=== PATIENT | female | born 1975 | race Caucasian/White ===

== ENCOUNTER 2019-09-17 12:38 | Emergency (ER) | payer SELFPAY ==
--- NOTE | 2019-09-17 14:38 | RAD REPORT ---
EXAM DESCRIPTION: RAD - Ribs Right - 09/17/2019 2:30 pm CLINICAL HISTORY: PAIN COMPARISON: No comparisons FINDINGS: Healing right posterolateral rib fracture is noted involving rib number 8. No acute rib fr acture seen. No aggressive rib lesion.
[2019-09-17] MEDS ORDERED: HYDROCODONE/APAP 10/325 TAB ONE (15:16)
[2019-09-17] MEDS ORDERED: KETOROLAC 30 MG/ML INJ ONE (15:16)
--- NOTE | 2019-09-17 15:24 | ER ---
Nurse's Notes 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 Transition of care: patient was not received from another setting of care. Onset of symptoms was September 10, 2019. Risk Assessment: Do you want to hurt yourself or someone else? Patient reports no desire to harm self or others. Initial Sepsis Screen: Does the patient meet any 2 criteria? No. Patient's initial sepsis screen is negative. Does the patient have a suspected source of infection? No. Patient's initial sepsis screen is negative. Care prior to arrival: Medication(s) given: Aleve at 0800 today. 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 - Social history:: Smoking status: Patient uses tobacco products, smokes one-half pack cigarettes per day. - Ebola Screening: : No symptoms or risks identified at this time. - Family history:: not pertinent. - Hospitalizations: : No recent hospitalization is reported. Screenin:35 Abuse screen: Denies threats or abuse. Nutritional screening: No deficits noted. tr5 Tuberculosis screening: No symptoms or risk factors identified. Fall Risk None identified. Assessment: 14:35 General: Appears uncomfortable, Behavior is calm, cooperative, appropriate for age. tr5 Pain: Complains of pain in right arm. Neuro: Level of Consciousness is awake, alert, obeys commands, Oriented to person, place, time, Wood Fuel Pelletizer are equal bilaterally. Cardiovascular: Heart tones present Capillary refill < 3 seconds Pulses are all present. Respiratory: Airway is patent Respiratory effort is even, unlabored, Respiratory pattern is regular, symmetrical. GI: No signs and/or symptoms were reported involving the gastrointestinal system. : No signs and/or symptoms were reported regarding the genitourinary system. EENT: No signs and/or symptoms were reported regarding the EENT system. Derm: No signs and/or symptoms reported regarding the dermatologic system. Musculoskeletal: Reports pain in right arm. Vital Signs: 12:49 BP 146 / 76; Pulse 80; Resp 16; Temp 98.3; Pulse Ox 99% ; Weight 58.97 kg; Height 5 ft. hb 7 in. (170.18 cm); Pain 8/10; 12:49 Body Mass Index 20.36 (58.97 kg, 170.18 cm) hb ED Course: 12:41 Patient arrived in ED. mr 12:48 Triage completed. hb 12:49 Arm band placed on. hb 13:19 Pop Troy MD is Attending Physician. rn 13:27 Bi Hollingsworth RN is Primary Nurse. tr5 14:35 Bed in low position. Call light in reach. Side rails up X 1. tr5 14:43 XRAY Ribs RIGHT In Process Unspecified. EDMS 15:47 EKG done, by pharmacy tech. reviewed by Pop Troy MD. 3 15:54 No provider procedures requiring assistance completed. Patient did not have IV access tr5 during this emergency room visit. Administered Medications: 15:25 Drug: TORadol 30 mg Route: IM; Site: right ventrogluteal; tr5 15:25 Drug: [place] 10 mg-325 mg 1 tabs {Note: RASS:0.} Route: PO; tr5 Outcome: 15:24 Discharge ordered by . rn 15:54 Discharged to home ambulatory. tr5 15:54 Condition: stable 15:54 Discharge instructions given to patient, family, friend, Instructed on discharge instructions, follow up and referral plans. medication usage, Demonstrated understanding of instructions, follow-up care, medications, Prescriptions given X 2. 15:55 Patient left the ED. tr5 Signatures: Dispatcher [employer] EDWY Alexa Grace Pop Farley MD MD rn Baxter, Heather, RN RN Qi Lambert 3 Bi Hollingsworth RN RN tr5
--- NOTE | 2019-09-17 15:25 | EDPHYS ---
Physician Documentation [facility] Name: Evelin Hammond Age: 44 yrs Sex: Female : 1975 Arrival Date: 09/17/2019 Time: 12:41 Bed 26 Private MD: ED Physician Pop Troy HPI: 09/17 15:00 This 44 yrs old Female presents to ER via Wheelchair with complaints of rn Shoulder Pain. 15:00 This 44 yrs old Female presents to ER via Wheelchair with complaints of rn Shoulder Pain/rib pain. 15:00 right ribs. rn 15:01 Onset: The symptoms/episode began/occurred 1 week(s) ago. Modifying factors: the rn symptoms are alleviated by remaining still, The symptoms are aggravated by movement. Severity of symptoms: At their worst the symptoms were moderate, in the emergency department the symptoms are unchanged. The patient has not experienced similar symptoms in the past. 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 No sob. No diaphoresis. No weakness/numbness. 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 - Social history:: Smoking status: Patient uses tobacco products, smokes one-half pack cigarettes per day. - Ebola Screening: : No symptoms or risks identified at this time. - Family history:: not pertinent. - Hospitalizations: : No recent hospitalization is reported. ROS: 15:16 Constitutional: Negative for fever, chills, and weight loss, Eyes: Negative for injury, rn pain, redness, and discharge, Neck: Negative for injury, pain, and swelling, Cardiovascular: Negative for palpitations, and edema, Respiratory: Negative for shortness of breath, cough, wheezing, and pleuritic chest pain, Abdomen/GI: Negative for abdominal pain, nausea, vomiting, diarrhea, and constipation, MS/Extremity: Negative for injury and deformity, Skin: Negative for injury, rash, and discoloration, Neuro: Negative for headache, weakness, numbness, tingling, and seizure. Exam: 15:16 Constitutional: This is a well developed, well nourished patient who is awake, alert, rn and in no acute distress. Head/Face: Normocephalic, atraumatic. Neck: Trachea midline, no thyromegaly or masses palpated, and no cervical lymphadenopathy. Supple, full range of motion without nuchal rigidity, or vertebral point tenderness. No Meningismus. Chest/axilla: Normal chest wall appearance and motion. + right lateral rib tenderness without ecchymosis/rash/crepitus. Cardiovascular: Regular rate and rhythm. No pulse deficits. Respiratory: No increased work of breathing, no retractions or nasal flaring. Abdomen/GI: soft, non-tender MS/ Extremity: Pulses equal, no cyanosis. Neurovascular intact. Full, normal range of motion. Equal circumference. Neuro: Awake and alert, GCS 15, oriented to person, place, time, and situation. Cranial nerves II-XII grossly intact. Motor strength 5/5 in all extremities. Sensory grossly intact. Vital Signs: 12:49 BP 146 / 76; Pulse 80; Resp 16; Temp 98.3; Pulse Ox 99% ; Weight 58.97 kg; Height 5 ft. hb 7 in. (170.18 cm); Pain 8/10; 12:49 Body Mass Index 20.36 (58.97 kg, 170.18 cm) hb MDM: 13:19 Patient medically screened. rn 15:22 Differential diagnosis: rib fracture, muscle strain. Data reviewed: vital signs, nurses rn notes, EKG, radiologic studies, plain films, and as a result, I will discharge patient. Counseling: I had a detailed discussion with the patient and/or guardian regarding: the historical points, exam findings, and any diagnostic results supporting the discharge/admit diagnosis, radiology results, the need for outpatient follow up, to return to the emergency department if symptoms worsen or persist or if there are any questions or concerns that arise at home. 15:23 Response to treatment: the patient's symptoms have mildly improved after treatment, and rn as a result, I will discharge patient. Special discussion: I discussed with the patient/guardian in detail that at this point there is no indication for admission to the hospital. It is understood, however, that if the symptoms persist or worsen the patient needs to return immediately for re-evaluation. ED course: Healing subacute posterolateral 8th rib fracture at or near location she is complaining of, will dc home with pain meds and muscle relaxer. . 09/17 13:36 Order name: ISRA Ribs RIGHT; Complete Time: 14:53 rn 09/17 15:19 Order name: EKG; Complete Time: 15:21 rn 09/17 15:19 Order name: EKG - Nurse/Tech; Complete Time: 15:25 rn Administered Medications: 15:25 Drug: TORadol 30 mg Route: IM; Site: right ventrogluteal; tr5 15:25 Drug: [place] 10 mg-325 mg 1 tabs {Note: RASS:0.} Route: PO; tr5 Disposition: 09/17/19 15:24 Discharged to Home. Impression: Fracture of one rib, right side. - Condition is Stable. - Discharge Instructions: Rib Fracture. - Prescriptions for Tylenol- Codeine #3 300-30 mg Oral Tablet - take 1 tablet by ORAL route every 6 hours As needed; 20 tablet. Cyclobenzaprine 10 mg Oral Tablet - take 1 tablet by ORAL route every 8 hours As needed; 20 tablet. - Medication Reconciliation Form, Thank You Letter, Antibiotic Education, Prescription Opioid Use form. - Follow up: Private Physician; When: As needed; Reason: Recheck today's complaints, Re-evaluation by your physician. - Problem is new. - Symptoms have improved. 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 No sob. . rn 15:55 15:24 09/17/2019 15:24 Discharged to Home. Impression: Fracture of one rib, right side. tr5 Condition is Stable. Forms are Medication Reconciliation Form, Thank You Letter, Antibiotic Education, Prescription Opioid Use. Follow up: Private Physician; When: As needed; Reason: Recheck today's complaints, Re-evaluation by your physician. Problem is new. Symptoms have improved. rn
[2019-09-17 16:21] VITALS: BP 146/76; TEMP 98.3; O2SAT 99
--- NOTE | 2019-09-18 07:25 | EKG ---
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
== END 2019-09-17 15:55 | disposition home or self-care (01) ==
LOC: ER 12:38
DX: S22.31XA Fracture of one rib, right side, initial encounter for closed fracture (principal); X50.1XXA Overexertion from prolonged static or awkward postures, initial encounter; Y93.89 Activity, other specified; Y92.89 Other specified places as the place of occurrence of the external cause; Y99.0 Civilian activity done for income or pay
CPT/HCPCS: 93005; 96372; 99284

== ENCOUNTER 2020-04-25 09:32 | Emergency (ER) | payer SELFPAY ==
[2020-04-25] MEDS ORDERED: HYDROCODONE/APAP 5/325 MG TAB ONE (11:19)
--- NOTE | 2020-04-25 11:31 | RAD REPORT ---
EXAM DESCRIPTION: RAD - Knee Left 3 View - 04/25/2020 10:21 am CLINICAL HISTORY: PAIN COMPARISON: No comparisons FINDINGS: Mild medial compartment space narrowing is seen. No fracture, dislocation or joint effusio n.
--- NOTE | 2020-04-25 11:43 | ER ---
Nurse's Notes [facility] Name: Evelin Hammond Age: 44 yrs Sex: Female : 1975 Arrival Date: 04/25/2020 Time: 09:35 Bed 23 Private MD: Diagnosis: Pain in left knee Presentation: 04/25 09:55 Chief complaint: Patient states: About a week and half ago, I slipped in the mud and ca1 hurt my L knee. Today, I went back to work this morning, and I can't stand on it. It just hurts. Coronavirus screen: Proceed with normal triage. Patient denies a cough. Patient denies shortness of breath or difficulty breathing. Patient denies measured and/or subjective temperature greater than 100.4F prior to today's visit. Patient denies travel on a cruise ship or to a country the [facility] currently lists as an affected area. Patient denies contact with known and/or suspected case of COVID-19. Ebola Screen: Patient negative for fever greater than or equal to 101.5 degrees Fahrenheit, and additional compatible Ebola Virus Disease symptoms Patient denies exposure to infectious person. Patient denies travel to an Ebola-affected area in the 21 days before illness onset. No symptoms or risks identified at this time. Initial Sepsis Screen: Does the patient meet any 2 criteria? No. Patient's initial sepsis screen is negative. Does the patient have a suspected source of infection? No. Patient's initial sepsis screen is negative. Risk Assessment: Do you want to hurt yourself or someone else? Patient reports no desire to harm self or others. Onset of symptoms was April 25, 2020. 09:55 Method Of Arrival: Wheelchair ca1 09:55 Acuity: JUAN MANUEL 4 ca1 Triage Assessment: 12:00 General: Appears in no apparent distress. Behavior is calm, cooperative. 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 - Social history:: Smoking status: Patient reports the use of cigarette tobacco products, smokes one-half pack cigarettes per day. Screenin:13 Abuse screen: Denies threats or abuse. Denies injuries from another. Nutritional iw screening: No deficits noted. Tuberculosis screening: No symptoms or risk factors identified. Fall Risk None identified. Assessment: 10:15 General: Appears in no apparent distress. comfortable, Behavior is calm, cooperative. iw Pain: Complains of pain in left knee. Neuro: Level of Consciousness is awake, alert, obeys commands, Oriented to person, place, time. Cardiovascular: Patient's skin is warm and dry. Respiratory: Respiratory effort is even, unlabored. GI: No signs and/or symptoms were reported involving the gastrointestinal system. Derm: Skin is intact, is healthy with good turgor. Musculoskeletal: Range of motion: limited in left knee. Vital Signs: 09:55 BP 105 / 65; Pulse 82; Resp 16 S; Temp 98.5(TE); Pulse Ox 99% on R/A; Weight 65.77 kg ca1 (R); Height 5 ft. 7 in. (170.18 cm) (R); Pain 8/10; 09:55 Body Mass Index 22.71 (65.77 kg, 170.18 cm) ca1 ED Course: 09:35 Patient arrived in ED. ag5 09:57 Triage completed. ca1 09:57 Arm band placed on right wrist. ca1 09:58 David Campbell NP is PHCP. pm1 09:58 Pop Troy MD is Attending Physician. pm1 10:15 Patient has correct armband on for positive identification. iw 10:21 Knee Left 3 View XRAY In Process Unspecified. EDMS 11:09 Yina Golden, RN is Primary Nurse. iw 12:13 No provider procedures requiring assistance completed. Patient did not have IV access iw during this emergency room visit. Administered Medications: 11:22 Drug: [place] 5 mg-325 mg 1 tabs Route: PO; iw Outcome: 11:42 Discharge ordered by . pm1 12:13 Discharged to home with crutches. iw 12:13 Condition: good 12:13 Discharge instructions given to patient, Instructed on discharge instructions, follow up and referral plans. Demonstrated understanding of instructions, follow-up care, medications, Prescriptions given X 1. 12:14 Patient left the ED. iw Signatures: Dispatcher [employer] EDMS Yina Golden, RN RN iw David Campbell, HYDRAULIC SPECIALIST HYDRAULIC SPECIALIST pm1 Amisha Costa, RN RN ca1 Nikos Mejia ag5
--- NOTE | 2020-04-25 11:43 | EDPHYS ---
Physician Documentation [facility] Name: Evelin Hammond Age: 44 yrs Sex: Female : 1975 Arrival Date: 04/25/2020 Time: 09:35 Bed 23 Private MD: ED Physician Pop Troy HPI: 04/25 10:53 This 44 yrs old Female presents to ER via Wheelchair with complaints of Knee pm1 Pain. 10:53 The patient presents with pain, that is acute. The complaints affect the left knee. pm1 Context: resulted from twisting of the extremity, the patient can partially bear weight, the patient is able to ambulate, Problem is a result from a previous injury: Yes. similar twisting injury many years ago that improved with rest. Onset: The symptoms/episode began/occurred 1 week(s) ago, and re-injured today. Modifying factors: The symptoms are alleviated by remaining still, the symptoms are aggravated by weight bearing, bending knee. Associated signs and symptoms: The patient has no apparent associated signs or symptoms, Pertinent negatives calf tenderness, fever, numbness, swelling, tingling. Treatment prior to arrival includes: rest and ibuprofen and tylenol. Severity of symptoms: in the emergency department the symptoms are actually worse. Patient slipped 1 week ago with falling that caused a twisting motion to her left knee. Patient reports some improvement with rest but then she slipped again today. She did not fall on the ground but it caused a twisting motion again. 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 - Social history:: Smoking status: Patient reports the use of cigarette tobacco products, smokes one-half pack cigarettes per day. ROS: 10:53 Constitutional: Negative for fever, chills, and weight loss, Neck: Negative for injury, pm1 pain, and swelling, Cardiovascular: Negative for chest pain, palpitations, and edema, Respiratory: Negative for shortness of breath, cough, wheezing, and pleuritic chest pain, Abdomen/GI: Negative for abdominal pain, nausea, vomiting, diarrhea, and constipation, Back: Negative for injury and pain. 10:53 Skin: Negative for injury, rash, and discoloration, Neuro: Negative for headache, weakness, numbness, tingling, and seizure. 10:53 MS/extremity: Positive for pain, of the left knee, Negative for deformity. Exam: 10:53 Constitutional: This is a well developed, well nourished patient who is awake, alert, pm1 and in no acute distress. Head/Face: Normocephalic, atraumatic. 10:53 Skin: Warm, dry with normal turgor. Normal color with no rashes, no lesions, and no evidence of cellulitis. 10:53 Cardiovascular: Exam negative for acute changes, Rate: normal, Rhythm: regular, Pulses: no pulse deficits are appreciated, Edema: is not appreciated. 10:53 Respiratory: Exam negative for acute changes, respiratory distress, shortness of breath. 10:53 Musculoskeletal/extremity: Extremities: grossly normal except: noted in the left knee: pain present with rotation of lower left leg medially and valgus stress. 10:53 Neuro: Exam negative for acute changes, Orientation: is normal, Motor: is normal, moves all fours, Sensation: is normal, no obvious gross deficits. Vital Signs: 09:55 BP 105 / 65; Pulse 82; Resp 16 S; Temp 98.5(TE); Pulse Ox 99% on R/A; Weight 65.77 kg ca1 (R); Height 5 ft. 7 in. (170.18 cm) (R); Pain 8/10; 09:55 Body Mass Index 22.71 (65.77 kg, 170.18 cm) ca1 MDM: 10:01 Patient medically screened. pm1 11:02 Data reviewed: vital signs. Data interpreted: Pulse oximetry: on room air is 99 %. pm1 Interpretation: normal. 11:41 Counseling: I had a detailed discussion with the patient and/or guardian regarding: the pm1 historical points, exam findings, and any diagnostic results supporting the discharge/admit diagnosis, radiology results, the need for outpatient follow up, to return to the emergency department if symptoms worsen or persist or if there are any questions or concerns that arise at home, Needs to see orthopedics for MRI and definitive treatment. 04/25 10:02 Order name: Knee Left 3 View XRAY; Complete Time: 11:40 pm1 04/25 10:53 Order name: Knee Immobilizer; Complete Time: 11:22 pm1 04/25 10:53 Order name: Crutches; Complete Time: 11:22 pm1 Administered Medications: 11:22 Drug: [place] 5 mg-325 mg 1 tabs Route: PO; Disposition: 13:01 Co-signature as Attending Physician, Pop Troy MD. rn Disposition: 04/25/20 11:42 Discharged to Home. Impression: Pain in left knee. - Condition is Stable. - Discharge Instructions: Crutch Use, Knee Immobilizer, Knee Pain. - Prescriptions for Tylenol- Codeine #3 300-30 mg Oral Tablet - take 2 tablets by ORAL route every 6 hours As needed; 20 tablet. - Medication Reconciliation Form, Thank You Letter, Antibiotic Education, Prescription Opioid Use form. - Follow up: Emergency Department; When: As needed; Reason: Worsening of condition. Follow up: Private Physician; When: 2 - 3 days; Reason: Recheck today's complaints, Continuance of care, Re-evaluation by your physician. - Problem is new. - Symptoms have improved. Signatures: Dispatcher [employer] Yina Royal RN RN iw Pop Troy MD MD rn Marinas, Patrick, MAO PART TIME pm1 Amisha Costa RN RN ca1 Corrections: (The following items were deleted from the chart) 11:41 11:41 Counseling: I had a detailed discussion with the patient and/or guardian pm1 regarding: the historical points, exam findings, and any diagnostic results supporting the discharge/admit diagnosis, radiology results, the need for outpatient follow up, to return to the emergency department if symptoms worsen or persist or if there are any questions or concerns that arise at home, pm1 12:14 11:42 04/25/2020 11:42 Discharged to Home. Impression: Pain in left knee. Condition is iw Stable. Forms are Medication Reconciliation Form, Thank You Letter, Antibiotic Education, Prescription Opioid Use. Follow up: Emergency Department; When: As needed; Reason: Worsening of condition. Follow up: Private Physician; When: 2 - 3 days; Reason: Recheck today's complaints, Continuance of care, Re-evaluation by your physician. Problem is new. Symptoms have improved. pm1
[2020-04-25 12:37] VITALS: BP 105/65; TEMP 98.5; O2SAT 99
== END 2020-04-25 12:14 | disposition home or self-care (01) ==
LOC: ER 09:32
DX: M25.562 Pain in left knee (principal); W01.0XXA Fall on same level from slipping, tripping and stumbling without subsequent striking against object, initial encounter; Y93.89 Activity, other specified; Y92.009 Unspecified place in unspecified non-institutional (private) residence as the place of occurrence of the external cause; F17.210 Nicotine dependence, cigarettes, uncomplicated
CPT/HCPCS: 99283

== ENCOUNTER 2021-04-07 05:27 | Emergency (ER) | payer SELFPAY ==
[2021-04-07] MEDS ORDERED: KETOROLAC 30 MG/ML INJ ONE (06:22)
[2021-04-07] MEDS ORDERED: CEPHALEXIN 250 MG CAP ONE (06:29)
[2021-04-07] MEDS ORDERED: SMZ./TMP. 800/160 MG TABLET ONE (06:30)
--- NOTE | 2021-04-07 06:40 | EDPHYS ---
Physician Documentation [facility] Name: Evelin Hammond Age: 45 yrs Sex: Female : 1975 Arrival Date: 04/07/2021 Time: 05:31 Bed 20 Private MD: ED Physician Yasir Jones HPI: 04/07 06:02 This 45 yrs old Female presents to ER via Ambulatory with complaints of mh7 Insect Bite. 06:02 The patient was bitten on the lrft forearm, by insect. Onset: The symptoms/episode mh7 began/occurred 3 day(s) ago. Animal information: Patient/Caregiver not able to describe the spider. Secondary to the bite the patient reports erythema, pain, a puncture wound, that is superficial, that is small. Associated signs and symptoms: Pertinent positives: erythema at site, pain at site, tenderness, Pertinent negatives: bony tenderness, fever, fluctuance, loss of consciousness, motor deficit, numbness distal to wound, suspected foreign body, swelling at site. Severity of symptoms: At their worst the symptoms were moderate, yesterday, in the emergency department the symptoms are unchanged. 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 - Social history:: Smoking status: Patient denies any tobacco usage or history of. ROS: 06:02 Constitutional: Negative for fever, chills, and weight loss, Eyes: Negative for injury, mh7 pain, redness, and discharge, ENT: Negative for injury, pain, and discharge, Neck: Negative for injury, pain, and swelling, Cardiovascular: Negative for chest pain, palpitations, and edema, Respiratory: Negative for shortness of breath, cough, wheezing, and pleuritic chest pain, Abdomen/GI: Negative for abdominal pain, nausea, vomiting, diarrhea, and constipation, Back: Negative for injury and pain, : Negative for injury, bleeding, discharge, and swelling, Neuro: Negative for headache, weakness, numbness, tingling, and seizure, Psych: Negative for depression, anxiety, suicide ideation, homicidal ideation, and hallucinations, Allergy/Immunology: Negative for hives, rash, and allergies, Endocrine: Negative for neck swelling, polydipsia, polyuria, polyphagia, and marked weight changes, Hematologic/Lymphatic: Negative for swollen nodes, abnormal bleeding, and unusual bruising. Exam: 06:02 Constitutional: This is a well developed, well nourished patient who is awake, alert, mh7 and in no acute distress. Head/Face: Normocephalic, atraumatic. Eyes: Pupils equal round and reactive to light, extra-ocular motions intact. Lids and lashes normal. Conjunctiva and sclera are non-icteric and not injected. Cornea within normal limits. Periorbital areas with no swelling, redness, or edema. Neck: Trachea midline, no thyromegaly or masses palpated, and no cervical lymphadenopathy. Supple, full range of motion without nuchal rigidity, or vertebral point tenderness. No Meningismus. Chest/axilla: Normal chest wall appearance and motion. Nontender with no deformity. No lesions are appreciated. Cardiovascular: Regular rate and rhythm with a normal S1 and S2. No gallops, murmurs, or rubs. Normal PMI, no JVD. No pulse deficits. Respiratory: Lungs have equal breath sounds bilaterally, clear to auscultation and percussion. No rales, rhonchi or wheezes noted. No increased work of breathing, no retractions or nasal flaring. Abdomen/GI: Soft, non-tender, with normal bowel sounds. No distension or tympany. No guarding or rebound. No evidence of tenderness throughout. Back: No spinal tenderness. No costovertebral tenderness. Full range of motion. 06:02 Neuro: Awake and alert, GCS 15, oriented to person, place, time, and situation. Cranial nerves II-XII grossly intact. Motor strength 5/5 in all extremities. Sensory grossly intact. Cerebellar exam normal. Normal gait. Psych: Awake, alert, with orientation to person, place and time. Behavior, mood, and affect are within normal limits. 06:02 Musculoskeletal/extremity: Extremities: noted in the left forearm: erythema, pain, tenderness, 3 cm area on dorsal left forearm, small puncture at center, no induration, no discharge, no swelling., ROM: intact in all extremities, Circulation is intact in all extremities. Sensation intact. Compartment Syndrome exam of affected extremity: is normal. no numbness, no tingling, no sensation deficit, no palor, no weak pulses, Joints: All joints appear normal with full range of motion. Weight bearing: able to fully bear weight, without difficulty, Tendon exam: specific tendon testing normal through active and passive range of motion 06:02 Skin: cellulitis, that is mild, confluent, on the left forearm, induration, is not appreciated, no rash present. Vital Signs: 05:38 BP 125 / 85; Pulse 93; Resp 16; Temp 97.8(O); Pulse Ox 99% on R/A; Weight 71.21 kg; ss Height 5 ft. 7 in. (170.18 cm); Pain 8/10; 05:38 Body Mass Index 24.59 (71.21 kg, 170.18 cm) ss MDM: 06:35 Differential diagnosis: cellulitis, Insect bite, contact dermatitis. Data reviewed: [facility] vital signs. Counseling: I had a detailed discussion with the patient and/or guardian regarding: the historical points, exam findings, and any diagnostic results supporting the discharge/admit diagnosis, the need for outpatient follow up, to return to the emergency department if symptoms worsen or persist or if there are any questions or concerns that arise at home. Response to treatment: the patient's symptoms have markedly improved after treatment. 06:39 Patient medically screened. [facility] Administered Medications: 06:05 Drug: TORadol (ketorolac) 60 mg Route: IM; Site: right ventrogluteal; [facility] 06:50 Follow up: Response: No adverse reaction [facility] 06:17 Drug: Bactrim (trimethoprim-sulfamethoxazole) (160 mg-800 mg (DS) 1 tablet Route: PO; [facility] 06:49 Follow up: Response: No adverse reaction [facility] 06:17 Drug: KeFLEX (cephalexin) 500 mg Route: PO; 8 06:49 Follow up: Response: No adverse reaction [facility] Disposition: 04/07/21 06:39 Discharged to Home. Impression: Cellulitis, Left Forearm, Possible Insect Bite. - Condition is Stable. - Discharge Instructions: Insect Bite, [id number], Cellulitis, Adult, Bvhy-[id number]. - Prescriptions for ketorolac 10 mg Oral tablet - take 1 tablet by ORAL route every 8 hours As needed not to exceed 40 mg in 24hrs; 12 tablet. Keflex 500 mg Oral Capsule - take 1 capsule by ORAL route every 6 hours for 10 days; 40 capsule. Bactrim DS 800- 160 mg Oral Tablet - take 1 tablet by ORAL route every 12 hours for 10 days; 20 tablet. - Medication Reconciliation Form, Thank You Letter, Antibiotic Education, Prescription Opioid Use form. - Follow up: Private Physician; When: 1 - 2 days; Reason: Worsening of condition, Recheck today's complaints, Continuance of care, Re-evaluation by your physician. Follow up: Emergency Department; When: 1 - 2 days; Reason: Worsening of condition, Recheck today's complaints. - Problem is new. - Symptoms have improved. Signatures: Angeles Morales RN RN ss Yasir Jones MD MD mh7 Hilario Ba RN RN jm8 Corrections: (The following items were deleted from the chart) 06:51 06:39 04/07/2021 06:39 Discharged to Home. Impression: Cellulitis, Left Forearm, jm8 Possible Insect Bite. Condition is Stable. Forms are Medication Reconciliation Form, Thank You Letter, Antibiotic Education, Prescription Opioid Use. Follow up: Private Physician; When: 1 - 2 days; Reason: Worsening of condition, Recheck today's complaints, Continuance of care, Re-evaluation by your physician. Follow up: Emergency Department; When: 1 - 2 days; Reason: Worsening of condition, Recheck today's complaints. Problem is new. Symptoms have improved. mh7
--- NOTE | 2021-04-07 06:40 | ER ---
Nurse's Notes [facility] Name: Evelin Hammond Age: 45 yrs Sex: Female : 1975 Arrival Date: 04/07/2021 Time: 05:31 Bed 20 Private MD: Diagnosis: Cellulitis, Left Forearm, Possible Insect Bite Presentation: 04/07 05:38 Chief complaint: Patient states: possible insect bite to L forearm that patient noticed ss yesterday. Coronavirus screen: Client denies travel out of the [place] in the last 14 days. Ebola Screen: Patient denies exposure to infectious person. Patient denies travel to an Ebola-affected area in the 21 days before illness onset. Initial Sepsis Screen: Does the patient meet any 2 criteria? No. Patient's initial sepsis screen is negative. Does the patient have a suspected source of infection? No. Patient's initial sepsis screen is negative. Risk Assessment: Do you want to hurt yourself or someone else? Patient reports no desire to harm self or others. Onset of symptoms was April 06, 2021. 05:38 Method Of Arrival: Ambulatory ss 05:38 Acuity: JUAN MANUEL 4 ss Triage Assessment: 05:44 Bite description: bite sustained to left forearm by an unknown animal, animal jm8 information: vaccination(s) is not up to date. 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 - Social history:: Smoking status: Patient denies any tobacco usage or history of. Screenin:37 Abuse screen: Denies threats or abuse. Denies injuries from another. Nutritional jm8 screening: No deficits noted. Tuberculosis screening: No symptoms or risk factors identified. Fall Risk None identified. Assessment: 05:37 General: Appears in no apparent distress. uncomfortable, Behavior is calm, cooperative, jm8 appropriate for age. Pain: Complains of pain in left forearm Pain currently is 10 out of 10 on a pain scale. Noted to be resistant to movement. Neuro: No deficits noted. Level of Consciousness is awake, alert, obeys commands, Oriented to person, place, time. Cardiovascular: No deficits noted. Respiratory: No deficits noted. Airway is patent Trachea midline Respiratory effort is even, unlabored, Respiratory pattern is regular, symmetrical. GI: No deficits noted. No signs and/or symptoms were reported involving the gastrointestinal system. : No deficits noted. No signs and/or symptoms were reported regarding the genitourinary system. EENT: No deficits noted. No signs and/or symptoms were reported regarding the EENT system. Derm: Skin is intact, is healthy with good turgor, Skin is dry, Skin is pink, warm \T\ dry. Wound noted left forearm Wound is insect bite Reports itching, pain that is 10 out of 10 on a pain scale. Musculoskeletal: No deficits noted. No signs and/or symptoms reported regarding the musculoskeletal system. Vital Signs: 05:38 BP 125 / 85; Pulse 93; Resp 16; Temp 97.8(O); Pulse Ox 99% on R/A; Weight 71.21 kg; ss Height 5 ft. 7 in. (170.18 cm); Pain 8/10; 05:38 Body Mass Index 24.59 (71.21 kg, 170.18 cm) ED Course: 05:31 Patient arrived in ED. am4 05:34 Yasir Jones MD is Attending Physician. [facility] 05:40 Triage completed. 05:40 Patient has correct armband on for positive identification. Bed in low position. Call 8 light in reach. Side rails up X2. Adult w/ patient. 05:41 Arm band placed on right wrist. 06:50 No provider procedures requiring assistance completed. Patient did not have IV access [facility] during this emergency room visit. Administered Medications: 06:05 Drug: TORadol (ketorolac) 60 mg Route: IM; Site: right ventrogluteal; 8 06:50 Follow up: Response: No adverse reaction jm8 06:17 Drug: Bactrim (trimethoprim-sulfamethoxazole) (160 mg-800 mg (DS) 1 tablet Route: PO; jm8 06:49 Follow up: Response: No adverse reaction 8 06:17 Drug: KeFLEX (cephalexin) 500 mg Route: PO; jm8 06:49 Follow up: Response: No adverse reaction 8 Outcome: 06:39 Discharge ordered by . [facility] 06:50 Discharged to home ambulatory. 8 06:50 Condition: good 06:50 Discharge instructions given to patient, family, Instructed on discharge instructions, follow up and referral plans. medication usage, Demonstrated understanding of instructions, follow-up care, medications, Prescriptions given X 3. 06:51 Patient left the ED. jm8 Signatures: Angeles Morales, RN RN Yasir Clemons MD MD 7 Idalmis Keene Joseph, RN RN jm8
[2021-04-07 07:00] VITALS: BP 125/85; TEMP 97.8; O2SAT 99
== END 2021-04-07 06:51 | disposition home or self-care (01) ==
LOC: ER 05:27
DX: L03.114 Cellulitis of left upper limb (principal)
CPT/HCPCS: 96372; 99283

== ENCOUNTER 2021-04-18 00:10 | Emergency (ER) | payer SELFPAY ==
[2021-04-18] MEDS ORDERED: KETOROLAC 30 MG/ML INJ ONE (01:05)
--- NOTE | 2021-04-18 02:15 | ER ---
Nurse's Notes [facility] Name: Evelin Hammond Age: 45 yrs Sex: Female : 1975 Arrival Date: 04/18/2021 Time: 00:19 Bed 25 Private MD: Diagnosis: Contusion, Left Foot;Abrasion, Left Foot Presentation: 04/18 00:25 Chief complaint: Patient states: dropped fishing weights that were in a tackle box em earlier today on the left foot, reports slight weight bearing on the left foot. Coronavirus screen: Client denies travel out of the [place] in the last 14 days. Ebola Screen: Patient negative for fever greater than or equal to 101.5 degrees Fahrenheit, and additional compatible Ebola Virus Disease symptoms Patient denies exposure to infectious person. Patient denies travel to an Ebola-affected area in the 21 days before illness onset. No symptoms or risks identified at this time. Initial Sepsis Screen: Does the patient meet any 2 criteria? No. Patient's initial sepsis screen is negative. Does the patient have a suspected source of infection? No. Patient's initial sepsis screen is negative. Risk Assessment: Do you want to hurt yourself or someone else? Patient reports no desire to harm self or others. Onset of symptoms was April 18, 2021. 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 - Social history:: Smoking status: Patient reports the use of cigarette tobacco products, smokes one-half pack cigarettes per day. Screenin:31 Abuse screen: Denies threats or abuse. Nutritional screening: No deficits noted. em Tuberculosis screening: No symptoms or risk factors identified. Fall Risk None identified. Assessment: 00:37 General: Appears in no apparent distress. comfortable, Behavior is calm, cooperative, em appropriate for age. Pain: Complains of pain in left foot Pain currently is 9 out of 10 on a pain scale. Neuro: Level of Consciousness is awake, alert, obeys commands, Oriented to person, place, time, situation, Appropriate for age. Cardiovascular: Capillary refill < 3 seconds Patient's skin is warm and dry. Respiratory: Airway is patent Respiratory effort is even, unlabored, Respiratory pattern is regular, symmetrical. Derm: Skin is intact, is healthy with good turgor, Skin is pink, warm \T\ dry. Musculoskeletal: Circulation, motion, and sensation intact. Capillary refill < 3 seconds, Range of motion: limited in left ankle Swelling absent. 02:00 Reassessment: Patient appears in no apparent distress at this time. Patient and/or em family updated on plan of care and expected duration. Pain level reassessed. Patient is alert, oriented x 3, equal unlabored respirations, skin warm/dry/pink. Vital Signs: 00:25 BP 132 / 91; Pulse 108; Resp 18; Temp 98.6; Pulse Ox 98% on R/A; Weight 71.21 kg; em Height 5 ft. 7 in. (170.18 cm); Pain 9/10; 02:00 BP 128 / 84; Pulse 97; Resp 18; Pulse Ox 99% on R/A; em 00:25 Body Mass Index 24.59 (71.21 kg, 170.18 cm) em ED Course: 00:19 Patient arrived in ED. am4 00:27 Triage completed. em 00:28 Arm band placed on. em 00:31 Antione Albert, RN is Primary Nurse. em 00:31 Patient has correct armband on for positive identification. Adult w/ patient. em 00:33 Yasir Jones MD is Attending Physician. mh7 00:58 Foot Left 3 View XRAY In Process Unspecified. EDMS 02:14 Ravi Smith DPM is Referral Physician. mh7 02:25 No provider procedures requiring assistance completed. Patient did not have IV access em during this emergency room visit. Administered Medications: 00:49 Drug: TORadol (ketorolac) 60 mg Route: IM; Site: right gluteus; em 02:25 Follow up: Response: No adverse reaction; Marked relief of symptoms; Pain is decreased em Outcome: 02:15 Discharge ordered by . mh7 02:25 Discharged to home via wheelchair. em 02:25 Condition: good 02:25 Discharge instructions given to patient, Instructed on discharge instructions, follow up and referral plans. medication usage, Demonstrated understanding of instructions, follow-up care, medications, Prescriptions given X 1. 02:26 Patient left the ED. em Signatures: Dispatcher [employer] Antione Hancock RN RN Yasir Helm MD MD [address] [facility]
--- NOTE | 2021-04-18 02:15 | EDPHYS ---
Physician Documentation [facility] Name: Evelin Hammond Age: 45 yrs Sex: Female : 1975 Arrival Date: 04/18/2021 Time: 00:19 Bed 25 Private MD: ED Physician Yasir Jones HPI: 04/18 01:10 This 45 yrs old Female presents to ER via Wheelchair with complaints of Foot mh7 Injury. 01:10 The patient presents with an injury. The complaints affect the left foot. Context: The mh7 problem was sustained at home, resulted from a heavy object falling, Tackle box, Mechanism of Injury: direct blow the patient can fully bear weight, the patient is able to ambulate, with mild difficulty. 01:12 Onset: The symptoms/episode began/occurred just prior to arrival, today. Modifying mh7 factors: The symptoms are alleviated by nothing, the symptoms are aggravated by weight bearing. Associated signs and symptoms: Pertinent positives: swelling, Pertinent negatives: calf tenderness, fever, nausea, numbness, rash, tingling, vomiting, warmth, weakness. Severity of symptoms: At their worst the symptoms were moderate, earlier today, in the emergency department the symptoms are unchanged. 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 - Social history:: Smoking status: Patient reports the use of cigarette tobacco products, smokes one-half pack cigarettes per day. ROS: 01:12 Constitutional: Negative for fever, chills, and weight loss. mh7 01:12 Eyes: Negative for injury, pain, redness, and discharge, ENT: Negative for injury, pain, and discharge, Neck: Negative for injury, pain, and swelling, Cardiovascular: Negative for chest pain, palpitations, and edema, Respiratory: Negative for shortness of breath, cough, wheezing, and pleuritic chest pain, Abdomen/GI: Negative for abdominal pain, nausea, vomiting, diarrhea, and constipation, Back: Negative for injury and pain, : Negative for injury, bleeding, discharge, and swelling, Neuro: Negative for headache, weakness, numbness, tingling, and seizure, Psych: Negative for depression, anxiety, suicide ideation, homicidal ideation, and hallucinations, Allergy/Immunology: Negative for hives, rash, and allergies, Endocrine: Negative for neck swelling, polydipsia, polyuria, polyphagia, and marked weight changes, Hematologic/Lymphatic: Negative for swollen nodes, abnormal bleeding, and unusual bruising. Exam: 01:12 Head/Face: Normocephalic, atraumatic. [facility] 01:12 Neuro: Awake and alert, GCS 15, oriented to person, place, time, and situation. Cranial nerves II-XII grossly intact. Motor strength 5/5 in all extremities. Sensory grossly intact. Cerebellar exam normal. Normal gait. Psych: Awake, alert, with orientation to person, place and time. Behavior, mood, and affect are within normal limits. 01:12 Constitutional: The patient appears in no acute distress, alert, awake, anxious. 01:12 Musculoskeletal/extremity: Extremities: noted in the left heel: abrasion, tenderness, ROM: intact in all extremities, Circulation is intact in all extremities. Sensation intact. Compartment Syndrome exam of affected extremity: is normal. no numbness, no tingling, no sensation deficit, no palor, no weak pulses, Joints: All joints appear normal with full range of motion. Weight bearing: is unable to bear weight, Tendon exam: specific tendon testing normal through active and passive range of motion Calves: are non-tender, have equal circumference. 01:12 Skin: injury, abrasion(s), very small abrasion noted, of the left heel. Vital Signs: 00:25 BP 132 / 91; Pulse 108; Resp 18; Temp 98.6; Pulse Ox 98% on R/A; Weight 71.21 kg; em Height 5 ft. 7 in. (170.18 cm); Pain 9/10; 02:00 BP 128 / 84; Pulse 97; Resp 18; Pulse Ox 99% on R/A; em 00:25 Body Mass Index 24.59 (71.21 kg, 170.18 cm) em MDM: 02:10 Differential diagnosis: fracture, sprain, penetrating trauma, Abrasion, Contusion. Data [facility] reviewed: vital signs, nurses notes, radiologic studies, plain films. Counseling: I had a detailed discussion with the patient and/or guardian regarding: the historical points, exam findings, and any diagnostic results supporting the discharge/admit diagnosis, radiology results, the need for outpatient follow up, to return to the emergency department if symptoms worsen or persist or if there are any questions or concerns that arise at home. Response to treatment: the patient's symptoms have markedly improved after treatment. 02:15 Patient medically screened. [facility] 04/18 00:32 Order name: Foot Left 3 View XRAY em 04/18 02:13 Order name: Ion Wrap; Complete Time: 02:25 [facility] Administered Medications: 00:49 Drug: TORadol (ketorolac) 60 mg Route: IM; Site: right gluteus; em 02:25 Follow up: Response: No adverse reaction; Marked relief of symptoms; Pain is decreased em Disposition: 04/18/21 02:15 Discharged to Home. Impression: Contusion, Left Foot, Abrasion, Left Foot. - Condition is Stable. - Discharge Instructions: Abrasion, [id number], Foot Contusion, [id number]. - Prescriptions for Ibuprofen 800 mg Oral Tablet - take 1 tablet by ORAL route every 8 hours As needed take with food; 15 tablet. - Medication Reconciliation Form, Thank You Letter, Antibiotic Education, Prescription Opioid Use form. - Follow up: Private Physician; When: 1 - 2 days; Reason: Worsening of condition, Recheck today's complaints, Continuance of care, Re-evaluation by your physician. Follow up: Ravi Smith DPM; When: 1 - 2 days; Reason: Worsening of condition, Recheck today's complaints. - Problem is new. - Symptoms have improved. Signatures: Dispatcher [employer] EDAntione Barnes RN RN Yasir Helm MD MD [facility] Corrections: (The following items were deleted from the chart) 02:26 02:15 04/18/2021 02:15 Discharged to Home. Impression: Contusion, Left Foot; Abrasion, em Left Foot. Condition is Stable. Forms are Medication Reconciliation Form, Thank You Letter, Antibiotic Education, Prescription Opioid Use. Follow up: Private Physician; When: 1 - 2 days; Reason: Worsening of condition, Recheck today's complaints, Continuance of care, Re-evaluation by your physician. Follow up: Ravi Smith; When: 1 - 2 days; Reason: Worsening of condition, Recheck today's complaints. Problem is new. Symptoms have improved. mh7
[2021-04-18 02:30] VITALS: TEMP 98.6
[2021-04-18 02:33] VITALS: BP 128/84; O2SAT 99
--- NOTE | 2021-04-18 08:58 | RAD REPORT ---
EXAM DESCRIPTION: RAD - Foot Left 3 View - 04/18/2021 12:58 am CLINICAL HISTORY: PAINfollowing trauma COMPARISON: No comparisons FINDINGS: No fracture, dislocation or periosteal reaction. No acute or destructive bony process. No air or foreign body in the soft tissues. IMPRESSION: Negative left foot examination.
== END 2021-04-18 02:26 | disposition home or self-care (01) ==
LOC: ER 00:10
DX: S90.812A Abrasion, left foot, initial encounter (principal); W20.8XXA Other cause of strike by thrown, projected or falling object, initial encounter; Y92.009 Unspecified place in unspecified non-institutional (private) residence as the place of occurrence of the external cause; F17.210 Nicotine dependence, cigarettes, uncomplicated